=== PATIENT | female | born 1995 | race Caucasian/White ===

== ENCOUNTER 2021-06-16 22:57 | Emergency (ER) | payer OTHER ==
[2021-06-16 23:12] VITALS: BP 135/83; PULSE 67; TEMP 98; BMI 22.8
[2021-06-16] MEDS ORDERED: ACETAMINOPHEN 1000 MG/100 ML VIAL (NON FORMULARY) IVPB ONE (23:20)
[2021-06-16] MEDS ORDERED: FAMOTIDINE 20 MG/50 ML IVPB 20 MG/50 ML MG IVPB ONE ×2 (23:20→23:21)
[2021-06-16] MEDS ORDERED: SODIUM CHLORIDE 1,000 ML IV STA (23:20)
[2021-06-16] MEDS ORDERED: ONDANSETRON 4 MG/2 ML VIAL IVPUSH ONE (23:20)
[2021-06-16] MEDS ORDERED: ONDANSETRON 4 MG/2 ML VIAL ONE (23:21)
[2021-06-16] MEDS ORDERED: ACETAMINOPHEN INJECTION 100 ML IVPB ONE (23:21)
[2021-06-16 23:43] LABS: HEMOGLOBIN 11.6 GM/dl (10.7-15.3); RBC 4.53 M/mm3 (3.60-5.2)
[2021-06-16 23:47] LABS: HEMATOCRIT 35.9 % (32.4-45.2); MCH 25.7 pg (25.7-33.7); MCHC 32.4 g/dl (32.0-36.0); MEAN CELL VOLUME 79.3 fl (80-96); PLATELET COUNT 211 10^3/uL (134-434); RDW 15.5 % (11.6-15.6); WHITE BLOOD COUNT 12.4 K/mm3 (4.0-10.8)
[2021-06-16 23:52] LABS: ALBUMIN 4.5 g/dl (3.4-5.0); BILIRUBIN,TOTAL 1.1 mg/dl (0.2-1); CALCIUM 9.2 mg/dl (8.5-10); CREATININE 0.7 mg/dl (0.55-1.3)
[2021-06-17 00:04] LABS: PLATELET ESTIMATE ADEQUATE
[2021-06-17 01:14] LABS: PH,URINE 6.5 (5.0-8.0); URINE APPEARANCE CLEAR; URINE BILIRUBIN NEGATIVE (NEGATIVE); URINE COLOR YELLOW; URINE GLUCOSE (UA) NEGATIVE (NEGATIVE); URINE KETONE 1+ (NEGATIVE); URINE LEUK ESTERASE NEGATIVE (NEGATIVE); URINE NITRITE NEGATIVE (NEGATIVE); URINE PROTEIN TRACE (NEGATIVE); URINE UROBILINOGEN 0.2 mg/dL (0.2-1.0)
== END 2021-06-17 00:21 | disposition home or self-care (01) ==
LOC: FER 22:57
PROC: 3E0333Z Introduction of Anti-inflammatory into Peripheral Vein, Percutaneous Approach (ICD-10-PCS; principal; 2021-06-16)
PROC: 3E033GC Introduction of Other Therapeutic Substance into Peripheral Vein, Percutaneous Approach (ICD-10-PCS; 2021-06-16)
PROC: 3E033GC Introduction of Other Therapeutic Substance into Peripheral Vein, Percutaneous Approach (ICD-10-PCS; 2021-06-16)
PROC: 3E0337Z Introduction of Electrolytic and Water Balance Substance into Peripheral Vein, Percutaneous Approach (ICD-10-PCS; 2021-06-16)
DX: R11.2 Nausea with vomiting, unspecified (principal); R19.7 Diarrhea, unspecified
CPT/HCPCS: 36415; 80053; 81003; 81025; 85025; 87086; 99284-25; J0131

== ENCOUNTER 2021-08-14 22:23 | Emergency (ER) | payer OTHER ==
[2021-08-14 22:30] VITALS: BP 122/83; PULSE 69; TEMP 97.7; BMI 21.9
[2021-08-14] MEDS ORDERED: ACETAMINOPHEN 500 MG TABLET (FP) PO ONE (23:49)
[2021-08-14] MEDS ORDERED: ACETAMINOPHEN 500 MG TABLET (FP) ONE (23:50)
== END 2021-08-15 00:41 | disposition home or self-care (01) ==
LOC: FER 22:23
PROC: 0H9QXZZ Drainage of Finger Nail, External Approach (ICD-10-PCS; principal; 2021-08-14)
DX: S60.111A Contusion of right thumb with damage to nail, initial encounter (principal); W23.1XXA Caught, crushed, jammed, or pinched between stationary objects, initial encounter
CPT/HCPCS: 73140-TC-RT-FY; 99283-25

== ENCOUNTER 2022-12-03 05:25 | Emergency (ER) | payer OTHER ==
[2022-12-03 05:34] VITALS: BP 135/83; PULSE 74; RESP 16; TEMP 99; BMI 21.9
[2022-12-03] MEDS ORDERED: ACETAMINOPHEN 1000 MG/100 ML BAG IVPB ONE (05:48)
[2022-12-03] MEDS ORDERED: SODIUM CHLORIDE 1,000 ML IV ONE (05:48)
[2022-12-03] MEDS ORDERED: ACETAMINOPHEN INJECTION 100 ML IVPB ONE (05:57)
[2022-12-03] MEDS ORDERED: KETOROLAC TROMETHAMINE 60 MG/2 ML VIAL IM ONE (06:30)
[2022-12-03] MEDS ORDERED: AMOX TR/POT CLAV 875MG/125MG TABLETS (FP) PO ONE (06:30)
[2022-12-03 06:52] LABS: HEMATOCRIT 32.4 % (32.4-45.2); HEMOGLOBIN 10.2 GM/dL (10.7-15.3); MCH 24.1 pg (25.7-33.7); MCHC 31.6 g/dl (32.0-36.0); MEAN CELL VOLUME 76.3 fl (80-96); MEAN PLT VOLUME 8.7 fl (7.5-11.1); PLATELET COUNT 173 10^3/uL (134-434); RBC 4.25 M/mm3 (3.60-5.2); RDW 15.5 % (11.6-15.6); WHITE BLOOD COUNT 3.7 K/mm3 (4.0-10.0)
[2022-12-03 07:25] LABS: ALBUMIN 3.8 g/dl (3.4-5.0); BLOOD UREA NITROGEN 18.7 mg/dL (7-18); CALCIUM 8.1 mg/dL (8.5-10.1)
[2022-12-03 07:28] LABS: CREATININE 0.5 mg/dL (0.55-1.3)
[2022-12-03 07:31] LABS: TOT PROT 7.1 g/dl (6.4-8.2)
[2022-12-03 07:57] LABS: PH,URINE 6.5 (5.0-8.0); URINE APPEARANCE CLEAR; URINE BILIRUBIN NEGATIVE (NEGATIVE); URINE COLOR YELLOW; URINE GLUCOSE (UA) NEGATIVE (NEGATIVE); URINE KETONE TRACE (NEGATIVE); URINE LEUK ESTERASE NEGATIVE (NEGATIVE); URINE NITRITE NEGATIVE (NEGATIVE); URINE PROTEIN TRACE (NEGATIVE)
[2022-12-03 08:23] LABS: BILIRUBIN,TOTAL 0.3 mg/dL (0.2-1)
[2022-12-03 08:38] LABS: HCG,QUALITATIVE URINE NEGATIVE
== END 2022-12-03 08:03 | disposition home or self-care (01) ==
LOC: FER 05:25
PROC: 3E033NZ Introduction of Analgesics, Hypnotics, Sedatives into Peripheral Vein, Percutaneous Approach (ICD-10-PCS; principal; 2022-12-03)
PROC: 3E0337Z Introduction of Electrolytic and Water Balance Substance into Peripheral Vein, Percutaneous Approach (ICD-10-PCS; 2022-12-03)
DX: R52 Pain, unspecified (principal); B34.9 Viral infection, unspecified; Z20.822 Contact with and (suspected) exposure to COVID-19
CPT/HCPCS: 0241U-QW; 36415; 80053; 81003; 84703; 85027; 87086; 99284-25

== ENCOUNTER 2024-03-30 11:34 | Emergency (ER) | payer OTHER ==
[2024-03-30 12:11] VITALS: BP 114/80; PULSE 64; RESP 16; TEMP 98.1; BMI 21.9
[2024-03-30] MEDS ORDERED: ACETAMINOPHEN INJECTION 100 ML IVPB ONE (12:16)
[2024-03-30] MEDS: ACETAMINOPHEN 1000 MG/100 ML BAG IVPB ONE (12:19)
[2024-03-30 13:19] LABS: HEMATOCRIT 36.1 % (32.4-45.2); HEMOGLOBIN 11.4 G/dL (10.7-15.3); MCH 26.2 pg (25.7-33.7); MCHC 31.6 g/dl (32.0-36.0); MEAN CELL VOLUME 83.1 fl (80-96); MEAN PLT VOLUME 10.4 fl (7.5-11.1); PLATELET COUNT 168.8 10^3/uL (134-434); RBC 4.35 10^6/uL (3.60-5.2); RDW 15.8 % (11.6-15.6); WHITE BLOOD COUNT 8.9 10^3/uL (4.0-10.8)
[2024-03-30 13:24] LABS: ALBUMIN 4.4 g/dl (3.4-5.0); ALK PHOS 41 U/L (45-117); ANION GAP 8 mmol/L (4-13); BILIRUBIN,TOTAL 0.4 mg/dl (0.2-1); CHLORIDE 107 mmol/L (98-107); CO2 24 mmol/L (21-32); CREATININE 0.8 mg/dl (0.6-1.3); GLUCOSE,RANDOM 85 mg/dl (74-106); POTASSIUM 3.9 mmol/L (3.5-5.1); SGOT/AST 17 U/L (15-37); SGPT/ALT 10 U/L (7-52); SODIUM 139 mmol/L (136-145); TOT PROT 6.8 g/dl (6.4-8.2)
[2024-03-30 15:06] LABS: ANISOCYTOSIS 1+
== END 2024-03-30 15:56 | disposition home or self-care (01) ==
LOC: FER 11:34
PROC: 3E033NZ Introduction of Analgesics, Hypnotics, Sedatives into Peripheral Vein, Percutaneous Approach (ICD-10-PCS; principal; 2024-03-30)
DX: M54.50 Low back pain, unspecified (principal); R55 Syncope and collapse; W10.9XXA Fall (on) (from) unspecified stairs and steps, initial encounter
CPT/HCPCS: 36415; 70450-TC; 72100-TC-FY; 72125-TC; 72170-TC-FY; 80053; 84484; 84703; 85027; 86850; 86900; 86901; 93005; 99285-25; J0131